=== PATIENT | female | born 1950 | race Caucasian/White ===

== ENCOUNTER 2018-05-18 05:40 | Day surgery (SDC) | payer MEDICARE, BC ==
[~2018-05-18] VITALS: Ht 160 cm; Wt 58.1 kg
--- NOTE | ~2018-05-18 | OP ---
PATIENT NAME: JONATHAN OLIVEIRA MEDICAL RECORD: [id number] :46 LOCATION:[facility] ADMISSION DATE: SURGEON: MERARI GIL DO DATE OF OPERATION: 05/18/2018 PROCEDURE: Colonoscopy with biopsies. INDICATIONS FOR PROCEDURE: Fecal incontinence and generalized abdominal tenderness as well as weight loss. SCOPE: [employer] video pediatric colonoscope. MEDICATIONS: Propofol 300 mg IV per anesthesia. WITHDRAWAL TIME: 12 minutes. ESTIMATED BLOOD LOSS: Minimal. COMPLICATIONS: None. FINDINGS: Informed consent was given. The patient was made comfortable with the above medication. After reaching an adequate level of sedation by slow IV push, the patient was placed on her left side. A digital rectal examination was performed. The patient did appear to have some external skin tags versus condyloma. Appearances were not extremely consistent with condyloma, but this probably needs further evaluation. The digital rectal examination revealed a slightly decreased rectal tone at rest. The patient was sedated, so participation in examination was not possible. There were no abnormalities palpated within the rectum. The endoscope was advanced under direct visualization through the rectum to the cecum, confirmed by the presence of the appendiceal orifice and ileocecal valve. The endoscope was slowly withdrawn and mucosa was carefully examined. The prep quality was poor as the patient did not tolerate her prep well. The mucosa was still able to be examined. There were no protruding masses into the lumen of the colon. No polyps were visualized on today's examination. There was no evidence of colitis. There was moderate diverticulosis of the entire colon with its most severe number of diverticula located in the distal descending and sigmoid colon. Multiple cold forceps biopsies were taken randomly of normal colonic mucosa to rule out the presence of microscopic colitis. Stool was collected to submit for xTAG study to rule out any infectious etiology of her loose stools and incontinence. Retroflexion was performed in the rectum with visualization of grade I internal hemorrhoids without bleeding. The endoscope was withdrawn from the patient. The patient tolerated the procedure well and there were no complications. IMPRESSION: 1. Poor prep. 2. Moderate diverticulosis of the entire colon. 3. Grade I internal hemorrhoids. 4. External anal tags versus condyloma. While appearances were not extremely consistent with condyloma, this may need further evaluation. PLAN AND RECOMMENDATIONS: 1. Discharge home when recovery parameters are met. 2. Follow up biopsy specimen results. 3. High fiber diet. OPERATIVE REPORT [id number] TEEJONATHAN 4. Supplement diet with Metamucil 1 tablespoon daily. 5. If Metamucil causes further incontinence, consider Konsyl fiber for bulking of the stool. 6. Can consider cholestyramine as well if fiber does not help bulk stool. 7. Continue current medications. 8. We will refer to Dr. Blackwell to evaluate anal tags versus condyloma and biopsy if indicated. 9. Consider referral to [facility] for anorectal manometry if symptoms cannot be controlled with supplements and medications. TRANSINT:[id number] Voice Confirmation ID: [id number] DOCUMENT ID: [id number] MERARI GIL DO at 0800 CC: [id number] DICTATION DATE: 05/18/1852 LOGISTICS MANAGER: 05/18/18 1037 [facility] 05/18/18 [id number] [place] [address]
[2018-05-18 06:06] LABS: HEMATOCRIT 38.4 % (36.0-48.0); HEMOGLOBIN 12.5 g/dL (12-16); MCH 27.1 pg (26.0-34.0); MCHC 32.6 g/dL (31.0-37.0); MCV 83.3 fL (80.0-100.0); MEAN PLATELET VOLUME 10.2 fL (7.4-10.4); RBC 4.61 10x6/uL (4.00-5.40); RDW 16.1 % (11.5-14.5); WBC 5.8 10x3/uL (4.8-10.8)
[2018-05-18 06:16] LABS: APTT 25.8 SECONDS (22.8-39.4); INR 1.07 (0.85-1.17); PROTIME 13.4 SECONDS (11.6-15.0)
[2018-05-18] MEDS ORDERED: ATIVAN1 MG PO ×2 (06:42→06:50)
[2018-05-18] MEDS ORDERED: OXYBUTYNIN10 MG/BOTT PO (06:43)
[2018-05-18] MEDS ORDERED: LIPITOR80 MG PO (06:44)
[2018-05-18] MEDS ORDERED: COREG6.25 MG PO (06:45)
[2018-05-18] MEDS ORDERED: PRINZIDE 20/12.1 TA1 PO (06:48)
[2018-05-18] MEDS ORDERED: HYDROCHLOROTH12.5 M1 PO (06:49)
[2018-05-18] MEDS ORDERED: LEXAPRO10 MG PO (06:50)
[2018-05-18] MEDS ORDERED: NITROSTAT0.4 MG SL (06:51)
[2018-05-18] MEDS ORDERED: BAYER CHEWABLE81 MG PO (06:53)
[2018-05-18] MEDS ORDERED: NORCO 10-325 TA1 TAB PO (06:55)
[2018-05-18] MEDS ORDERED: BRILINTA90 MG PO (06:57)
[2018-05-18 06:59] VITALS: BP 165/90; Ht 160 cm; Wt 58.1 kg
== END 2018-05-18 09:50 | disposition home or self-care (01) ==
LOC: D.OPS 05:40
PROVIDERS: Anesthesiology
DX: K57.30 Diverticulosis of large intestine without perforation or abscess without bleeding (principal); K64.0 First degree hemorrhoids; K64.4 Residual hemorrhoidal skin tags; Z01.812 Encounter for preprocedural laboratory examination